=== PATIENT | female | born 1985 | race Caucasian/White ===

== ENCOUNTER → 2017-06-07 | Outpatient (CLI) | payer BC ==
[~2017-06-07] MED LIST: GADOBENATE DIMEGLUMINE 1 ML IV ONE
--- NOTE | 2017-06-07 20:07 | Diagnostic Imaging Report ---
Exam: Brain MRI without with IV contrast History: Severe headache Comparison studies: None Technique: Precontrast axial WI, axial T1 FLAIR, axial T2*GRE, axial and sagittal T2 FS. Postcontrast axial T2 FLAIR and axial coronal T1 FS. Intravenous contrast: 11 cc of TLaila Coreas Findings: Scalp: No abnormal signal. No masses. Bone marrow: Normal in signal intensity. Brain sulci: Appropriate for age. Ventricles: Normal in size. No hydrocephalus. Extra axial spaces: No mass, no fluid collection. Parenchyma: No masses, hemorrhage, acute or chronic vascular insults. No enhancing abnormalities. Single 5 mm juxtacortical T2 FLAIR hyperintense focus in the inferior right superior frontal gyrus is nonspecific. Suprasellar region: No abnormalities. Craniocervical junction: Patent foramen magnum. No Chiari one malformation. Vessels: Normal flow-voids in the arteries and sinuses. Incidental findings: Small development of venous anomaly (DVA) extends from the right subinsular region to the ventricular margin. There may be an additional small developmental venous anomaly and/or capillary telangiectasia in the right tierney. Minimal nonspecific right frontoethmoidal inflammatory mucosal thickening. IMPRESSION: 1. Single subtle focus of signal abnormality in the right frontal lobe is nonspecific and may reflect small focal gliosis, minimal chronic small vessel ischemic changes or be migraine-related in the appropriate context. 2. Otherwise, no significant intracranial abnormalities. 3. Incidental small developmental vascular anomalies, as described. Signed by: Dr. Topher Giang M.D. on 06/07/2017 8:04 PM
== END ==
LOC: MRI 15:51
PROVIDERS: ATTEND Psychiatry & Neurology Clinical Neurophysiology
DX: G43.111 Migraine with aura, intractable, with status migrainosus (principal)
CPT/HCPCS: 70553; 81025